=== PATIENT | female | born 1970 | race Caucasian/White ===

== ENCOUNTER 2021-05-15 16:35 | Emergency (ER) | payer BC ==
[2021-05-15] MEDS ORDERED: ASPIRIN 81 MG PO STA (17:20)
[2021-05-15] MEDS ORDERED: MORPHINE SULFATE 2 MG/ML SYRINGE IVP STA (17:20)
[2021-05-15 17:34] LABS: Basophils # (A) 0.1 k/uL (0-0.2); Basophils % (A) 1 %; Eosinophils # (A) 0.1 k/uL (0-0.7); Eosinophils % (A) 1 %; HCT 44.2 % (34.0-46.0); HGB 15.5 gm/dL (11.4-16.0); Lymphocytes % (A) 28 %; MCH 30.8 pg (25.0-35.0); MCHC 35.1 g/dL (31.0-37.0); MCV 87.7 fL (80.0-100.0); Mean Platelet Volume 7.6; Monocytes # (A) 0.3 k/uL (0-1.0); Monocytes % (A) 4 %; Neutrophils # (A) 4.6 k/uL (1.3-7.7); Neutrophils % (A) 65 %; Platelet Count 247 k/uL (150-450); RBC 5.04 m/uL (3.80-5.40)
[2021-05-15 17:41] LABS: HCG,Qualitative Serum Not Detected
[2021-05-15 17:45] LABS: ALT 39 U/L (4-34); AST 40 U/L (14-36); African American GFR (CKD) >90 (>60 ml/min/1.73 sqM); Albumin 4.4 g/dL (3.5-5.0); Alkaline Phosphatase 106 U/L (38-126); Anion Gap 9 mmol/L; Blood Urea Nitrogen 10 mg/dL (7-17); Calcium 9.8 mg/dL (8.4-10.2); Carbon Dioxide 22 mmol/L (22-30); Chloride 104 mmol/L (98-107); Glucose 138 mg/dL (74-99); Magnesium 2.3 mg/dL (1.6-2.3); Non-African American GFR(CKD) >90 (>60 ml/min/1.73 sqM); Potassium 4.1 mmol/L (3.5-5.1); Sodium 135 mmol/L (137-145); Total Bilirubin 0.3 mg/dL (0.2-1.3); Total Protein 7.8 g/dL (6.3-8.2)
[2021-05-15 17:48] LABS: INR 0.9 (<1.2); Partial Thromboplastin Time 22.6 sec (22.0-30.0); Prothrombin Time 9.8 sec (9.0-12.0)
[2021-05-15 17:53] VITALS: RESP 18
--- NOTE | 2021-05-15 18:03 | XR ---
EXAMINATION TYPE: XR chest 2V DATE OF EXAM: 05/15/2021 COMPARISON: NONE HISTORY: Chest pain radiating to the back TECHNIQUE: Frontal and lateral views of the chest are obtained. FINDINGS: There is no focal air space opacity, pleural effusion, or pneumothorax seen. The cardiac silhouette size is within normal limits. The osseous structures are intact. IMPRESSION: No acute cardiopulmonary process.
--- NOTE | 2021-05-15 18:57 | CT ---
EXAMINATION TYPE: CT angio thor/abd pel aorta DATE OF EXAM: 05/15/2021 COMPARISON: None available HISTORY: Chest, back pain, Aortic dissection suspected. CT DLP: 998.1 mGycm. Automated Exposure Control for Dose Reduction was Utilized. CONTRAST: CT scan of the thorax, abdomen and pelvis is performed with IV Contrast, patient injected with 100 mL of Isovue 370. Coronal and sagittal reformatted images were obtained. 3-D post processing reconstruc tions were performed on an independent workstation under concurrent supervision. FINDINGS: Vasculature: No evidence of aortic dissection or aneurysm. No high-grade stenosis, occlusion, or aneurysm involvin g the aorta or major branches of the aorta. Pulmonary arteries are of normal caliber without evidence of pulmonary embolism. Chest: Thyroid gland appears normal. Cardiac size is within normal limits. No pericardial effusion. No media stinal, hilar, or axillary lymphadenopathy. Central airways are normal course and caliber. Bi-apical bleb changes. Lungs are clear. No pleural ef fusions or pneumothorax. No suspicious pulmonary nodules. Abd/pelvis: Liver, spleen, pancreas, and bilateral adrenal glands appear unremarkable. Gallbladder is present. No intrahepatic or extrahepatic biliary ductal dilatation. Kidneys are symmetric in size without hydronephrosis. Urinary bladder appears unremarkable. Uterus is absent. No adnexal masses. No free fluid. Visualized bowel is of normal caliber without evidence of bowel obstruction. No mesenteric inflammati on. Appendix appears unremarkable. No free air. No abdominal or retroperitoneal lymphadenopathy. Musculoskeletal No acute osseous abnormality. Moderate multilevel degenerative changes the visualized thoracolumbar s pine. Soft tissues appear unremarkable. IMPRESSION: 1. No dissection, high-grade stenosis, occlusion, or aneurysm of the thoracic or abdominal aorta. 2. No high-grade stenosis, occlusion, dissection, or aneurysm of the major branches of the aorta. 3. No pulmonary embolism. 4. No acute cardiopulmonary or intra-abdominal process. 5. No acute osseous abnormality.
[2021-05-15] MEDS ORDERED: KETOROLAC 15 MG/ML 1 ML VIAL IVP STA (19:05)
--- NOTE | 2021-05-15 19:06 | ED ---
General Adult HPI - General Chief complaint: Chest Pain Stated complaint: chest pain Time Seen by Provider: 05/15/21 16:54 Source: patient, RN notes reviewed, old records reviewed Mode of arrival: ambulatory Limitations: no limitations - History of Present Illness Initial comments: Patient is a 50-year-old female who presents emergency Department complaining of chest pain for one day. She states she first noticed it this morning. She described it as a pressure-/sharp sensation located over her sternum with some mild radiation towards her left shoulder. She states the left shoulder pain felt more like a pulling sensation. Patient states that the chest pain also radiates straight back between her shoulder blades. She denies any episodes of severe ripping sensation in her back. She did not take any analgesia. She did notice that provocative factors include some movement with her left arm and torso. She denies any known palliative factors. She denies any dyspnea. Denies any abdominal pain, nausea, vomiting. Denies any blurry vision, headaches, weakness, numbness. She has no other acute complaints at this time. Patient's only medical history includes tobacco use. No cardiac history. No medications otherwise. She did receive her COVID-19 vaccine. She has no other acute complaints at this time. Patient presents over concern for chest pain. - Related Data Home Medications Medication Instructions Recorded Confirmed No Known Home Medications 05/15/21 05/15/21 Allergies Allergy/AdvReac Type Severity Reaction Status Date / Time sulfamethoxazole Allergy Anaphylaxis Verified 05/15/21 17:29 [From Bactrim] trimethoprim [From Bactrim] Allergy Anaphylaxis Verified 05/15/21 17:29 Review of Systems ROS Statement: Those systems with pertinent positive or pertinent negative responses have been documented in the HPI. Review of Systems: CONST: Denies fever EYES: Denies blurry vision ENT: Denies nasal congestion C/V: Endorses chest pain RESP: Denies shortness of breath GI: Denies abdominal pain : Denies dysuria SKIN: Denies rash. MSK: Denies joint pain. NEURO: Denies headache ROS Other: All systems not noted in ROS Statement are negative. Past Medical History Past Medical History: No Reported History History of Any Multi-Drug Resistant Organisms: None Reported Past Surgical History: Section, Hysterectomy, Joint Replacement Additional Past Surgical History / Comment(s): rt knee, Past Psychological History: No Psychological Hx Reported Smoking Status: Current every day smoker Past Alcohol Use History: None Reported Past Drug Use History: None Reported General Exam - General Exam Comments Initial Comments: General: Appears in mild distress secondary to chest pain. HEAD: Normal with no signs of head trauma. EYES: PERRLA, EOMI, conjunctiva normal, no discharge. ENT: Hearing grossly intact, normal oropharynx. RESPIRATORY: Clear breath sounds bilaterally. No wheezes, rales, or rhonchi. C/V: Regular rate and rhythm. S1 and S2 auscultated. No peripheral edema. Peripheral pulses are 2+ intact throughout. Patient has reproducible chest pain on palpation. ABD: Abd is soft, nontender, nondistended EXT: Normal range of motion, no obvious deformity SKIN: No rashes or lesions observed on exposed skin. NEURO: Alert and oriented 4. No focal sensory strength deficits. Limitations: no limitations Course Vital Signs 05/15/21 05/15/21 05/15/21 16:41 17:53 19:15 Temperature 98.1 F 98.4 F Pulse Rate 100 93 85 Respiratory 20 18 18 Rate Blood Pressure 135/91 150/95 122/93 O2 Sat by Pulse 99 98 97 Oximetry Medical Decision Making - Medical Decision Making Based on the patient's presentation and physical exam, I'm concerned for acute cardiac etiology for her current symptoms, I cannot rule out the possibility of aortic dissection this time particularly with her chief complaint story. Therefore we will obtain a cardiac workup including troponin, EKG, CTA of the chest abdomen pelvis. Patient will be administered an aspirin. She'll be given morphine for pain management. She was in agreement with this plan. She'll be connected to continuous monitor worker she is in the department. EKG showed no acute signs of ischemia. Laboratory studies were remarkable for a negative troponin. D-dimer is minimally elevated 0.6 home but we are already obtaining a CTA to evaluate for PE and dissection. Remainder of her labs are relatively unremarkable. Patient's CTA imaging revealed no acute signs of dissection or pulmonary embolism. Imaging was otherwise normal. On reevaluation come patient states that her pain is vastly improved. She would like to go home. I did discuss with her that with a negative cardiac workup as well as negative imaging, platelet of this being cardiac in nature is extremely low. Heart scores low for the patient is her only risk factor is smoking. I do believe it is safer to be discharged home at this time. She was in agreement with the plan. I instructed the patient to follow up with their PCP in the next 3 days. I explained that the patient should return to the emergency department if they experience any worsening symptoms. Strict return precautions were discussed with the patient. The patient expressed understanding of these instructions. I answered all questions that the patient had. The patient was discharged home in good condition with their prescriptions and follow up information. - Lab Data Result diagrams: 05/15/21 17:28 05/15/21 17:28 Lab Results 05/15/21 05/15/21 05/15/21 Range/Units 17:28 17:28 17:28 WBC 7.0 (3.8-10.6) k/uL RBC 5.04 (3.80-5.40) m/uL Hgb 15.5 (11.4-16.0) gm/dL Hct 44.2 (34.0-46.0) % MCV 87.7 (80.0-100.0) fL MCH 30.8 (25.0-35.0) pg MCHC 35.1 (31.0-37.0) g/dL RDW 13.0 (11.5-15.5) % Plt Count 247 (150-450) k/uL MPV 7.6 Neutrophils % 65 % Lymphocytes % 28 % Monocytes % 4 % Eosinophils % 1 % Basophils % 1 % Neutrophils # 4.6 (1.3-7.7) k/uL Lymphocytes # 2.0 (1.0-4.8) k/uL Monocytes # 0.3 (0-1.0) k/uL Eosinophils # 0.1 (0-0.7) k/uL Basophils # 0.1 (0-0.2) k/uL PT 9.8 (9.0-12.0) sec INR 0.9 (<1.2) APTT 22.6 (22.0-30.0) sec D-Dimer 0.61 H (<0.60) mg/L FEU Sodium 135 L (137-145) mmol/L Potassium 4.1 (3.5-5.1) mmol/L Chloride 104 (98-107) mmol/L Carbon Dioxide 22 (22-30) mmol/L Anion Gap 9 mmol/L BUN 10 (7-17) mg/dL Creatinine 0.73 (0.52-1.04) mg/dL Est GFR (CKD-EPI)AfAm >90 (>60 ml/min/1.73 sqM) Est GFR (CKD-EPI)NonAf >90 (>60 ml/min/1.73 sqM) Glucose 138 H (74-99) mg/dL Calcium 9.8 (8.4-10.2) mg/dL Magnesium 2.3 (1.6-2.3) mg/dL Total Bilirubin 0.3 (0.2-1.3) mg/dL AST 40 H (14-36) U/L ALT 39 H (4-34) U/L Alkaline Phosphatase 106 (38-126) U/L Troponin I (0.000-0.034) ng/mL Total Protein 7.8 (6.3-8.2) g/dL Albumin 4.4 (3.5-5.0) g/dL HCG, Qual Not Detected 05/15/21 Range/Units 17:28 WBC (3.8-10.6) k/uL RBC (3.80-5.40) m/uL Hgb (11.4-16.0) gm/dL Hct (34.0-46.0) % MCV (80.0-100.0) fL MCH (25.0-35.0) pg MCHC (31.0-37.0) g/dL RDW (11.5-15.5) % Plt Count (150-450) k/uL MPV Neutrophils % % Lymphocytes % % Monocytes % % Eosinophils % % Basophils % % Neutrophils # (1.3-7.7) k/uL Lymphocytes # (1.0-4.8) k/uL Monocytes # (0-1.0) k/uL Eosinophils # (0-0.7) k/uL Basophils # (0-0.2) k/uL PT (9.0-12.0) sec INR (<1.2) APTT (22.0-30.0) sec D-Dimer (<0.60) mg/L FEU Sodium (137-145) mmol/L Potassium (3.5-5.1) mmol/L Chloride (98-107) mmol/L Carbon Dioxide (22-30) mmol/L Anion Gap mmol/L BUN (7-17) mg/dL Creatinine (0.52-1.04) mg/dL Est GFR (CKD-EPI)AfAm (>60 ml/min/1.73 sqM) Est GFR (CKD-EPI)NonAf (>60 ml/min/1.73 sqM) Glucose (74-99) mg/dL Calcium (8.4-10.2) mg/dL Magnesium (1.6-2.3) mg/dL Total Bilirubin (0.2-1.3) mg/dL AST (14-36) U/L ALT (4-34) U/L Alkaline Phosphatase (38-126) U/L Troponin I <0.012 (0.000-0.034) ng/mL Total Protein (6.3-8.2) g/dL Albumin (3.5-5.0) g/dL HCG, Qual - EKG Data -: EKG Interpreted by Me EKG Comments: 12-lead Electrocardiogram Interpretation Note EKG was reviewed and interpreted by myself. 12-lead ECG performed at 1651 is interpreted by me as revealing normal sinus rhythm at a rate of 94 beats per minute. Left axis deviation. IL interval is 124 ms, QRS duration 74 ms, QTc is 455 ms.. There were no ST or T wave abnormalities to suggest myocardial ischemia or injury. R wave progression across the precordium was satisfactory. By my interpretation this EKG is non-diagnostic for acute ischemia. Disposition Clinical Impression: Chest pain of unknown etiology, Musculoskeletal pain Disposition: HOME SELF-CARE Condition: Good Instructions (If sedation given, give patient instructions): Chest Pain (ED), Costochondritis (ED) Is patient prescribed a controlled substance at d/c from ED?: No Referrals: Maik Bartholomew MD [Primary Care Provider] - 1-2 days
[2021-05-15 19:17] VITALS: BP 122/93; PULSE 85; TEMP 98.4
== END 2021-05-15 19:15 | disposition home or self-care (01) ==
LOC: EC 16:35 → SUPCPDRO 16:35 → EC 19:15
DX: R07.89 Other chest pain (principal); F17.200 Nicotine dependence, unspecified, uncomplicated; Z88.1 Allergy status to other antibiotic agents; Z88.2 Allergy status to sulfonamides; Z90.710 Acquired absence of both cervix and uterus
CPT/HCPCS: 99285; 96374; 96375; 36415; 93005; 85379; 80053; 83735; 84484; 85025; 85610; 85730; 84703; 71046; 71275; 74174; J2270; J1885; Q9967

== ENCOUNTER 2024-06-04 07:08 | Day surgery (SDC) | payer BC, OTHER ==
[~2024-06-04 07:08] MED LIST: LIDOCAINE 1% (10MG/ML) FOR IV START INTRADERMA PRN
[2024-06-04] MEDS: IV FLUID CONTINUATION 1,000 ML IV ONE (07:30)
[2024-06-04 07:37] VITALS: TEMP 97.9
[2024-06-04] MEDS: LACTATED RINGERS 1,000 ML IV SCH (07:44)
[2024-06-04 07:50] LABS: Glucose,Whole Blood 100 mg/dL (70-110)
--- NOTE | 2024-06-04 08:19 | P.GSHP ---
History of Present Illness H&P Date: 06/04/24 CHIEF COMPLAINT: GERD and colon screen HISTORY OF PRESENT ILLNESS: The patient is a 53-year-old female who presents with gastroesophageal reflux disease and need for colon screen. Upper and lower endoscopy were offered for further evaluation and management. PAST MEDICAL HISTORY: Please see list. PAST SURGICAL HISTORY: Please see list. MEDICATIONS: Please see list. ALLERGIES: Please see list. SOCIAL HISTORY: No illicit drug use FAMILY HISTORY: No reports of Crohn disease or ulcerative colitis. REVIEW OF ORGAN SYSTEMS: CONSTITUTIONAL: No reports of fevers or chills. GI: Denies any blood in stools or constipation. PHYSICAL EXAM: VITAL SIGNS: Stable GENERAL: Well-developed pleasant in no acute distress. HEENT: No scleral icterus. Extraocular movements grossly intact. Moist buccal mucosa. NECK: Supple without lymphadenopathy. CHEST: Unlabored respirations. Equal bilateral excursions. CARDIOVASCULAR: Regular rate and rhythm. Distal 2+ pulses. ABDOMEN: Soft, nondistended. MUSCULOSKELETAL: No clubbing, cyanosis, or edema. ASSESSMENT: 1. Gastroesophageal reflux disease 2. Colon screen. PLAN: 1. Recommend proceeding with an upper and lower endoscopy Past Medical History Past Medical History: Hyperlipidemia Additional Past Medical History / Comment(s): PCOS- takes metformin; high cholesterol per pt no meds. History of Any Multi-Drug Resistant Organisms: None Reported Past Surgical History: Section, Hysterectomy, Joint Replacement Additional Past Surgical History / Comment(s): x2; rt knee replacement Past Anesthesia/Blood Transfusion Reactions: No Reported Reaction Smoking Status: Former smoker Medications and Allergies Home Medications Medication Instructions Recorded Confirmed Type Cetirizine HCl [Zyrtec] 10 mg PO DAILY 06/02/24 06/02/24 History metFORMIN HCL ER [Glucophage XR] 1,500 mg PO HS 06/02/24 06/02/24 History Allergies Allergy/AdvReac Type Severity Reaction Status Date / Time sulfamethoxazole Allergy Anaphylaxis Verified 06/04/24 07:31 [From Bactrim] trimethoprim [From Bactrim] Allergy Anaphylaxis Verified 06/04/24 07:31 Surgical - Exam Vital Signs Temp Pulse Resp BP Pulse Ox 97.9 F 81 18 112/80 98 06/04/24 07:33 06/04/24 07:33 06/04/24 07:33 06/04/24 07:33 06/04/24 07:33
[2024-06-04] MEDS ORDERED: PROPOFOL 10 MG/ML 20 ML VIAL IV ONE (08:21)
[2024-06-04] MEDS ORDERED: LIDOCAINE 1% INJ 10MG/ML (20 ML MDV) ONE (08:21)
--- NOTE | 2024-06-04 08:59 | P.PCN ---
Date of Procedure: 06/04/24 Description of Procedure: PREOPERATIVE DIAGNOSIS: Gastroesophageal reflux disease. POSTOPERATIVE DIAGNOSIS: Gastroesophageal reflux disease with erosive esophagitis Gastritis Duodenitis Diaphragmatic hiatal hernia OPERATION: Esophagogastroduodenoscopy with biopsies along antrum and duodenum SURGEON: Jennifer Zarate MD ANESTHESIA: MAC. INDICATIONS: The patient is a 53-year-old female who presents with reflux disease. Benefits and risks of the procedure were described. Informed consent was obtained. DESCRIPTION: The patient was brought into the endoscopy suite and laid in the left lateral decubitus position. An Olympus gastroscope was passed along the posterior oropharynx down to the distal esophagus where the squamocolumnar junction was encountered at 35 cm from the incisors. The stomach was entered and bile reflux was found. Additional findings are listed below. Biopsies with cold forceps were obtained of the antrum. The first through third portion of the duodenum was examined. Retroflexion of the scope confirmed Hill grade 3 lower esophageal valve. The squamocolumnar junction demonstrated LA grade B erosive esophagitis. The stomach was desufflated. The patient tolerated the procedure well. FINDINGS: Squamocolumnar junction 35 cm from the incisors. Diaphragmatic hiatus at 35 cm. Hiatal hernia, 3 cm Hill grade 3 lower esophageal valve. LA grade B erosive esophagitis. Biopsies obtained Biopsies obtained of the duodenum. Chronic gastritis with biopsies obtained. RECOMMENDATIONS: Upper endoscopy as needed.
--- NOTE | 2024-06-04 09:09 | P.PCN ---
Date of Procedure: 06/04/24 Description of Procedure: PREOPERATIVE DIAGNOSIS: Change in bowel habits Colonoscopy screening POSTOPERATIVE DIAGNOSIS: Change in bowel habits Colonoscopy screening OPERATION: Colonoscopy to the cecum, ileocecal valve and appendiceal orifice. SURGEON: Jennifer Zarate MD. ANESTHESIA: MAC. INDICATIONS: The patient is a 53-year-old female who presents for colonoscopy screening and change in bowel habits. Benefits and risks were described and informed consent was obtained. DESCRIPTION OF PROCEDURE: The patient had undergone GoLytely prep. The patient had been brought into the operating room and laid in the left lateral decubitus position. After adequate intravenous sedation, the rectum was examined with 2% lidocaine jelly. No external hemorrhoids were encountered. The rectal tone was within normal limits. No lesions were palpated in the rectal vault. An Olympus colonoscope was advanced until the cecum, ileocecal valve and appendiceal orifice were clearly viewed. The prep was excellent. No large scattered diverticulosis was encountered. No colonic polyps were found. No evidence of focal colitis was found. Retroflexion of the scope demonstrated grade 1 internal hemorrhoids without active bleeding or inflammation. The colon was desufflated. The patient had tolerated the procedure well. Withdrawal time was over 6 minutes. FINDINGS: Aronchick preparation quality scale 1+(1-5) Internal hemorrhoids, grade 1 No external prolapsed hemorrhoids. No arteriovenous malformations. No adenomatous polyps. No focal colitis. RECOMMENDATIONS: Lower endoscopy in 10 years, 2033 Plan - Discharge Summary Discharge Rx Participant: No New Discharge Prescriptions: New Omeprazole [PriLOSEC] 40 mg PO DAILY #14 cap Continue metFORMIN HCL ER [Glucophage XR] 1,500 mg PO HS Cetirizine HCl [Zyrtec] 10 mg PO DAILY Discharge Medication List Cetirizine HCl [Zyrtec] 10 mg PO DAILY 06/02/24 [History] metFORMIN HCL ER [Glucophage XR] 1,500 mg PO HS 06/02/24 [History] Omeprazole [PriLOSEC] 40 mg PO DAILY #14 cap 06/04/24 [Rx] Follow up Appointment(s)/Referral(s): Jennifer Zarate MD [STAFF PHYSICIAN] - 06/16/24 4:00 pm Patient Instructions/Handouts: Hiatal Hernia (DC), Duodenitis (DC), Gastritis (GEN) Activity/Diet/Wound Care/Special Instructions: Repeat colonoscopy 10 years, 2033 Discharge Disposition: HOME SELF-CARE
[2024-06-04 09:21] VITALS: BP 120/81; PULSE 77; RESP 18
== END 2024-06-04 09:41 | disposition home or self-care (01) ==
LOC: ORWHC2ENDO 07:08
PROVIDERS: ATTEND Surgery Plastic and Reconstructive Surgery
DX: K21.00 Gastro-esophageal reflux disease with esophagitis, without bleeding (principal); K29.50 Unspecified chronic gastritis without bleeding; K29.80 Duodenitis without bleeding; K44.9 Diaphragmatic hernia without obstruction or gangrene; R19.4 Change in bowel habit; K64.0 First degree hemorrhoids; E78.5 Hyperlipidemia, unspecified; E28.2 Polycystic ovarian syndrome; Z79.84 Long term (current) use of oral hypoglycemic drugs; Z79.899 Other long term (current) drug therapy; Z88.2 Allergy status to sulfonamides; Z87.891 Personal history of nicotine dependence; Z96.651 Presence of right artificial knee joint
CPT/HCPCS: 43239; 45378; 88305